=== PATIENT | female | born 2000 | race Caucasian/White ===

== ENCOUNTER → 2022-10-17 | Outpatient (CLI) | payer OTHER, SELFPAY ==
[2022-10-17 15:13] LABS: Absolute Lymphocyte Count 2.49 X10^3/uL (0.83-4.51); Absolute Neutrophil Count 1.9 X10^3/uL (2.0-7.7); Basophil# 0.02 X10^3/uL; Basophil% 0.4 % (0-1); Eosinophil# 0.07 X10^3/uL; Eosinophils% 1.4 % (0-5); Hematocrit 37.2 % (37-47); Hemoglobin 12.2 g/dL (12.0-15.0); Lymphocyte # 2.49 X10^3/ul (0.83-4.51); Lymphocyte % 50.2 % (19-41); Mean Corp Hgb Conc 32.8 g/dL (32-36); Mean Corpuscular Hgb 33.3 pg (27.0-32.0); Mean Corpuscular Volume 101.6 fL (81-99); Monocyte# 0.47 X10^3/uL; Monocyte% 9.5 % (0-10); NRBC Flagged by Analyzer 0 % (0-5); Neutrophil % 38.3 % (47-70); Platelet Count 189 K/mm3 (150-450); RBC Distribution Width CV 12.2 % (11.6-14.6); RBC Distribution Width SD 46.1 fl (35.1-43.9); Red Blood Count 3.66 M/mm3 (4.2-5.4)
[2022-10-17 15:35] LABS: Vitamin B12 275 pg/mL (211-911); Vitamin D,25 Hydroxy 32.4 ng/mL
[2022-10-17 15:39] LABS: ALB/GLOB Ratio 1.3 RATIO (0.9-2.4); AST(SGOT) 17 U/L (15-37); Alanine Aminotransfer ALT/SGPT 22 U/L (13-56); Albumin, Serum 3.9 g/dL (3.2-5.0); Alkaline Phosphatase 35 U/L (45-117); Anion Gap 5 (5-15); BUN 13 mg/dL (7-18); BUN/Creat Ratio 18.4 RATIO (10-20); Calcium,Total 8.5 mg/dL (8.5-10.1); Chloride 109 mmol/L (98-107); Creatinine, Serum 0.71 mg/dL (0.55-1.02); EST Glomerular Filtration Rate 110 mL/min (>60); Est Glom Filt Rate - Afr Amer 133 mL/min (>60); Ferritin 41 ng/mL (8-252); Globulin 3.1 g/dL (2.2-4.2); Glucose 86 mg/dL (74-106); Potassium 4.3 mmol/L (3.5-5.1); Sodium Level 141 mmol/L (136-145); T4 Free Direct 0.81 ng/dL (0.76-1.46); Thyroid Stim Hormone (TSH) 4.51 uIU/mL (0.358-3.74)
== END | disposition home or self-care (01) ==
PROVIDERS: PCP Nurse Practitioner Family; Referring Provider Nurse Practitioner Family; Visit Provider Nurse Practitioner Family
DX: R53.83 Other fatigue (principal); E03.9 Hypothyroidism, unspecified
CPT/HCPCS: 36415; 80053; 82306; 82607; 82728; 84439; 84443; 85025

== ENCOUNTER 2024-06-06 10:04 | Inpatient (IN) | payer OTHER, SELFPAY ==
[2024-06-06] VITALS (17 sets, daily range): BP systolic 105–147; BP diastolic 57–80; PULSE 60–100; RESP 16–18; TEMP 36.1–37.1; O2SAT 96–100; BMI 34.7
[2024-06-06 10:00] LABS: ROM Internal Control Test YES-OK TO RESULT pt. (Internal QC)
[2024-06-06 10:01] LABS: ROM Patient Test POSITIVE (Negative); Record Kit Lot#, ROM+ K2871
[2024-06-06] MEDS: 0.9% Saline Lock 10 ML Syringe IV (11:48)
[2024-06-06 11:58] LABS: Absolute Lymphocyte Count 2.42 X10^3/uL (0.83-4.51); Absolute Neutrophil Count 10.3 X10^3/uL (2.0-7.7); Basophil# 0.04 X10^3/uL; Basophil% 0.3 % (0-1); Eosinophil# 0.03 X10^3/uL; Eosinophils% 0.2 % (0-5); Hematocrit 40.8 % (37-47); Hemoglobin 14.2 g/dL (12.0-15.0); Lymphocyte # 2.42 X10^3/ul (0.83-4.51); Lymphocyte % 17.8 % (19-41); Mean Corp Hgb Conc 34.8 g/dL (32-36); Mean Corpuscular Hgb 33.8 pg (27.0-32.0); Mean Corpuscular Volume 97.1 fL (81-99); Mean Platelet Vol. 11.9 fl (6.2-12.0); Monocyte# 0.72 X10^3/uL; Monocyte% 5.3 % (0-10); NRBC Flagged by Analyzer 0 % (0-5); Neutrophil % 75.6 % (47-70); Platelet Count 171 K/mm3 (150-450); RBC Distribution Width CV 13.3 % (11.6-14.6); RBC Distribution Width SD 47.3 fl (35.1-43.9); White Blood Count 13.6 K/mm3 (4.4-11.0)
[2024-06-06 14:23] LABS: Syphilis Antibodies Nonreactive (Nonreactive)
--- NOTE | 2024-06-06 18:23 | PCM.HP.OB ---
HPI - General General Date of Admission: 06/06/24 HPI Narrative BRAYAN HOUGH, is a 23 F who presents at 38w1d with SROM at home. Clear fluid, no vaginal bleeding. Good movement. Irregular and infrequent contractions. Maternal Data Information LESTER Calculator Estimated Delivery Date Method Current WG Current Estimate 06/19/24 Manual 38w 1d PFSH PFSH Medical History no medical history Home Medications ?Medication ?Instructions ?Recorded ?Last Taken ?Type cholecalciferol (vitamin D3) 50 50 mcg PO DAILY vitamins 06/06/24 06/05/24 History mcg (2,000 unit) capsule (Vitamin D3) ferrous bisglycinate 13.5 mg PO DAILY anemia 06/06/24 06/05/24 History magnesium 2 tab PO DAILY vitamins 06/06/24 06/05/24 History omega-3 fatty acids 600 mg PO DAILY vitamins 06/06/24 06/05/24 History vits,calcium no.78-iron 1 tab PO DAILY 06/06/24 06/05/24 History fumarate-folic acid 29 mg-1 mg tablet (Prenatabs FA) Allergy/AdvReac Type Severity Reaction Status Date / Time No Known Allergies Allergy Verified 06/06/24 09:23 Surgical History no surgical history Social History Smoking Status: Never smoker History Elective abortions Hx Para 0 Spontaneous abortions Hx # Term Pregnancies Ectopic pregnancies Hx # Pregnancies Multiple births # of living children NST FHR Rate Baby A Baseline: 140 Variability:: Moderate Accelerations:: 15 x 15 Decelerations:: None NST Reactive:: Yes FHR Category:: Category I Uterine Activity:: Irregular ROS Constitutional Constitutional: Reports systems reviewed and no addt'l complaints, except as documented; Denies headache(s) Eyes Eyes: Denies acute decrease in peripheral vision, blurry vision or change in vision ENT HEENT: Reports systems reviewed and no addt'l complaints, except as documented Cardiovascular Cardiovascular: Denies chest pain or dizziness Respiratory/Chest Respiratory/Chest: Denies cough, dyspnea, dyspnea on exertion, shortness of breath at rest or shortness of breath with exertion Gastrointestinal Gastrointestinal: Denies abdominal pain, diarrhea, nausea or vomiting Genitourinary Genitourinary: Denies abdominal discomfort Musculoskeletal Musculoskeletal: Denies limited range of motion Integumentary Integumentary: Reports systems reviewed and no addt'l complaints, except as documented Neurologic Neurologic: Reports systems reviewed and no addt'l complaints, except as documented Psychiatric Psychiatric: Reports systems reviewed and no addt'l complaints, except as documented Endocrine Endocrinology: Reports systems reviewed and no addt'l complaints, except as documented Hematologic/Lymphatic Hematologic/Lymphatic: Reports systems reviewed and no addt'l complaints, except as documented Allergic/Immunologic Allergic/Immunologic: Reports systems reviewed and no addt'l complaints, except as documented Vital Signs Vital Signs Vital Signs: 06/06/24 09:45 06/06/24 09:45 06/06/24 09:45 Temperature Temperature Source Temporal Pulse Rate Respiratory Rate 16 Blood Pressure BP Systolic BP Diastolic Pulse Ox 98 06/06/24 09:45 06/06/24 09:48 06/06/24 09:48 Temperature 98.7 F Temperature Source Pulse Rate 69 Respiratory Rate Blood Pressure 123/74 H BP Systolic 123 BP Diastolic 74 Pulse Ox 06/06/24 11:57 06/06/24 11:57 06/06/24 11:57 Temperature Temperature Source Temporal Pulse Rate 75 Respiratory Rate Blood Pressure 133/79 H BP Systolic 133 BP Diastolic 79 Pulse Ox 06/06/24 11:57 06/06/24 11:57 06/06/24 11:57 Temperature Temperature Source Pulse Rate 74 Respiratory Rate 16 Blood Pressure BP Systolic BP Diastolic Pulse Ox 98 06/06/24 11:57 06/06/24 14:13 06/06/24 14:13 Temperature 98.6 F Temperature Source Pulse Rate 67 Respiratory Rate Blood Pressure 110/57 L BP Systolic 110 BP Diastolic 57 Pulse Ox 06/06/24 14:13 06/06/24 14:13 06/06/24 14:13 Temperature Temperature Source Temporal Pulse Rate Respiratory Rate 16 Blood Pressure BP Systolic BP Diastolic Pulse Ox 98 06/06/24 14:13 06/06/24 15:52 06/06/24 15:52 Temperature 96.9 F L Temperature Source Temporal Pulse Rate Respiratory Rate 16 Blood Pressure BP Systolic BP Diastolic Pulse Ox 06/06/24 15:52 06/06/24 15:52 06/06/24 15:53 Temperature 98.7 F Temperature Source Pulse Rate Respiratory Rate Blood Pressure 128/73 H BP Systolic 128 BP Diastolic 73 Pulse Ox 98 06/06/24 15:53 06/06/24 17:14 06/06/24 17:14 Temperature Temperature Source Temporal Pulse Rate 87 Respiratory Rate 16 Blood Pressure BP Systolic BP Diastolic Pulse Ox 06/06/24 17:14 06/06/24 17:14 06/06/24 17:16 Temperature 98.6 F Temperature Source Pulse Rate Respiratory Rate Blood Pressure 147/77 H BP Systolic 147 BP Diastolic 77 Pulse Ox 96 06/06/24 17:16 06/06/24 18:17 06/06/24 18:17 Temperature Temperature Source Pulse Rate 100 85 Respiratory Rate Blood Pressure 132/80 H BP Systolic 132 BP Diastolic 80 Pulse Ox Weight Weight: 208 lb 12.444 oz Body Mass Index (BMI) 34.7 Physical Exam Const alert and oriented x3 General Appearance: cooperative Orientation / Consciousness: awake, oriented to person, oriented to place and oriented to time Exam Limitations: no limitations HEENT normocephalic Head and Scalp: normal to inspection, normocephalic and atraumatic Face and Sinus: normal facial exam Eyes General Eye: normal appearance of both eyes Neck full ROM Chest Chest: symmetrical chest wall rise Resp normal respiratory effort and normal air movement Auscultation: clear to auscultation bilaterally Cardio regular rate, regular rhythm, S1 normal heart sound, S2 normal heart sound, no murmurs, no rub, no gallops and no clicks GI normal to inspection, nondistended, normoactive bowel sounds and non-tender appearance of the vagina normal Bladder / Kidney Exam: no CVA tenderness Manual OB Exam: estimated gestational size appropriate, presentation cephalic and other Back/Spine normal ROM Extremity normal to inspection and full ROM Skin no rashes or lesions noted Neuro oriented x3 and moves all extremities Sensorium / Orientation: awake, alert and oriented to person Motor Exam: clonus absent Deep Tendon Reflexes: Rt Patellar (L4): 2+ and Lt Patellar (L4): 2+ Labs Labs Labs: Blood Type A POSITIVE Antibody Screen NEGATIVE Hct 40.8 % (37-47) Hgb 14.2 g/dL (12.0-15.0) Syphilis Total Ab Nonreactive (Nonreactive) GBS negative HIV negative RPR negative Rubella Immune HBsAG negative HepC negative GC/CT negative 1hr GCT negative Assessment & Plan (1) 38 weeks gestation of : (2) Premature rupture of membranes: (3) History of hypothyroidism: (4) Obesity affecting : COMMENT: BMI 30 (5) LGSIL on Pap smear of cervix: PLAN: Plan 1) Admit to labor and delivery 2) Routine labs 3) Intermittent Auscultation 4) Pain management upon request, planning unmedicated 5) PROM, desired no cervical exam on admission and expectant management. Reviewed risks, benefits, and alternatives to expectant vs active management. Discussed cytotec, pitocin, and nipple stimulation. Declined cytotec and pitocin and wanted expectant management. 6) collaborative physician and notified of patient status, above assessment, and plan.
[2024-06-07] VITALS (32 sets, daily range): BP systolic 99–141; BP diastolic 53–77; PULSE 60–113; RESP 15–18; TEMP 36.1–37.1; O2SAT 92–100
[2024-06-07] MEDS: Oxytocin 15 Units/NS 250ml 15 UNITS/250 ML IV.SOLN 83 UNITS IV (07:15)
[2024-06-07] MEDS: Oxytocin 10 UNITS/ML Vial IM (07:19)
[2024-06-07] MEDS: Lidocaine 1% (20 ml mdv) 20 ML Vial INFILT (07:19)
--- NOTE | 2024-06-07 07:50 | EX.PCM.OBVAG ---
Assessment & Plan (1) Vaginal delivery: (2) First degree perineal laceration: (3) Lactating mother: Maternal Data Information LESTER Calculator Estimated Delivery Date Method Current WG Current Estimate 06/19/24 Manual 38w 2d Vaginal Delivery Maternal Presentation Maternal Presentation: Spontaneous Rupture of Membranes Vaginal Delivery Information Procedure Performed: Spontaneous Vaginal Delivery Date of Procedure: 06/07/24 Pre-Procedure Diagnosis: PROM Post-Procedure Diagnosis: , first degree perineal laceration Type of anesthesia: Local with 1% Lidocaine Estimated Blood Loss: 350ml Time of Delivery: 06:58 Findings Description of procedure: Progressed to complete with urge to push. Unmedicated. of viable female infant over first degree perineum. APGARS 9,9 respectively. Infant head delivered with body immediately forthcoming, CANx1, delivered through. Placed on maternal abdomen, strong cry. Mouth and nares suctioned for secretions. Pitocin started for active 3rd stage management. Cord doubly clamped and cut by FOB after pulsations ceased, delayed cord clamping. Placenta delivered intact via torres, 3 vessel cord intact. Perineum inspected and revealed first degree perineal laceration. Repaired with 3.0 vicryl rapide and lidocaine. Fundus firm and hemostasis achieved. EBL 350ml. Mom and baby stable, planning to breastfeed. Family bonding well. notified of delivery. Presentation: Vertex Amniotic Membrane Rupture Type: Spontaneous Amniotic Fluid Description: Clear Placental Delivery Description: Spontaneous Placenta Disposition: [facility] Specimen collected: No Cord Vessel Description: 3 Vessels Cord Entanglement: Around neck x 1, loose Nuchal Cord Compression: Without compression Infant A Gender: Female (1 minute): 9 (5 minute): 9 Delayed Cord Clamping: Yes Equipment Or Machinery Cleaner developmental mathematics professor: No Post Vaginal Deli Medications given after delivery: IV Pitocin and IM Pitocin Episiotomy Description: None Laceration: Perineal Extension/lac and 1st degree Complication Complications: No
[2024-06-07] MEDS: Methylergonovine 0.2 MG/ML Ampul IM (08:04)
[2024-06-07] MEDS: Benzocaine/Lanolin/Aloe Vera 85 GM Spray 1 SPRAY TOPICAL (10:04)
[2024-06-08] VITALS (9 sets, daily range): BP systolic 107–121; BP diastolic 56–75; PULSE 77–96; RESP 16; TEMP 36.2–36.7; O2SAT 97
[2024-06-08 06:57] LABS: Absolute Lymphocyte Count 3.18 X10^3/uL (0.83-4.51); Absolute Neutrophil Count 8.5 X10^3/uL (2.0-7.7); Basophil# 0.04 X10^3/uL; Basophil% 0.3 % (0-1); Eosinophil# 0.13 X10^3/uL; Hematocrit 29.5 % (37-47); Hemoglobin 10.3 g/dL (12.0-15.0); Lymphocyte # 3.18 X10^3/ul (0.83-4.51); Mean Corp Hgb Conc 34.9 g/dL (32-36); Mean Corpuscular Hgb 34.3 pg (27.0-32.0); Mean Corpuscular Volume 98.3 fL (81-99); Mean Platelet Vol. 11.9 fl (6.2-12.0); Monocyte% 9.8 % (0-10); NRBC Flagged by Analyzer 0 % (0-5); Neutrophil # 8.54 X10^3/uL (2.7-7.7); Neutrophil % 64.4 % (47-70); Platelet Count 151 K/mm3 (150-450); RBC Distribution Width CV 13.7 % (11.6-14.6); RBC Distribution Width SD 49.1 fl (35.1-43.9); White Blood Count 13.3 K/mm3 (4.4-11.0)
--- NOTE | 2024-06-08 08:38 | PN.OBGYN_ITS ---
Subjective Subjective Doing well. Ambulating and voiding without difficulty. Mild lochia. Breast feeding. Objective Data Objective Data Vital Signs: Vital Signs Temp Pulse Resp BP Pulse Ox O2 Del Method 97.2 F L 80 16 107/60 97 Room Air 06/08/24 04:21 06/08/24 08:24 06/08/24 08:23 06/08/24 08:24 06/08/24 08:23 06/08/24 08:23 Oxygen Delivery Method Room Air Weight: 94.7 kg Body Mass Index (BMI) 34.7 Intake & Output: Intake and Output for Last 24 Hours 06/06/24 06/07/24 06/08/24 23:59 23:59 23:59 Intake Total 250 / 250 Output Total 351 / 351 Balance -101 / -101 Lab / Micro Data 06/08/24 06:40 Labs: Laboratory Results - last 24 hr 06/08/24 06:40: WBC 13.3 H, RBC 3.00 L, Hgb 10.3 L, Hct 29.5 L, MCV 98.3, MCH 34.3 H, MCHC 34.9, RDW Std Deviation 49.1 H, RDW Coeff of Jaz 13.7, Plt Count 151, MPV 11.9, Immature Gran % (Auto) 0.500, Neut % (Auto) 64.4, Lymph % (Auto) 24.0, [place] % (Auto) 9.8, Eos % (Auto) 1.0, Baso % (Auto) 0.3, Absolute Neuts (auto) 8.5 H, Absolute Lymphs (auto) 3.18, Nucleated RBC % 0 ROS Constitutional Constitutional: Denies headache(s) Cardiovascular Cardiovascular: Denies chest pain or dyspnea Gastrointestinal Gastrointestinal: Denies nausea or vomiting Genitourinary Genitourinary: Denies dysuria Physical Exam Const alert, oriented x3 and no apparent distress General Appearance: cooperative and comfortable Eyes PERRL and EOMs intact bilaterally Resp normal respiratory effort GI soft to palpation and non-tender Uterus Palpation: uterus fundus firm ( below umbilicus) Extremity normal to inspection and full ROM Neuro oriented x3 and CN's II-XII intact bilaterally Psych mental status grossly normal Assessment & Plan (1) Lactating mother: (2) Vaginal delivery: PLAN: Plan Discharge home
--- NOTE | 2024-06-08 08:39 | PCM.DC.SUM ---
Providers Date of Admission: 06/06/24 Date of Discharge: 06/08/24 Primary Care Physician: HARI Salcido Reason For Visit: VAGINAL DELIVERY Diagnosis Discharge Diagnosis (1) Lactating mother: Status: Acute Code(s): Z39.1 - Encounter for care and examination of lactating mother (2) Vaginal delivery: Status: Acute Code(s): O80 - Encounter for full-term uncomplicated delivery Plan Discharge home Medications at Discharge Home Medications cholecalciferol (vitamin D3) 50 mcg (2,000 unit) capsule (Vitamin D3) 50 mcg PO DAILY vitamins 06/06/24 ferrous bisglycinate 13.5 mg PO DAILY anemia 06/06/24 magnesium 2 tab PO DAILY vitamins 06/06/24 omega-3 fatty acids 600 mg PO DAILY vitamins 06/06/24 vits,calcium no.78-iron fumarate-folic acid 29 mg-1 mg tablet (Prenatabs FA) 1 tab PO DAILY 06/06/24 Hospital Course Operations None Procedures None Summary of Care Provided Minutes Spent on Discharge: 20 Hospital Course: Admitted for ROM. Progressed to complete without interventions and had an uncomplicated . Breast feeding Physical Exam Const alert and no apparent distress Narrative: Fundus firm, below umbilicus. Weight / BMI Weight Weight: 94.7 kg Body Mass Index (BMI) 34.7 ABG / Lab / Microbiology Data 06/08/24 06:40 Laboratory: Laboratory Results - last 24 hr 06/08/24 06:40: WBC 13.3 H, RBC 3.00 L, Hgb 10.3 L, Hct 29.5 L, MCV 98.3, MCH 34.3 H, MCHC 34.9, RDW Std Deviation 49.1 H, RDW Coeff of Jaz 13.7, Plt Count 151, MPV 11.9, Immature Gran % (Auto) 0.500, Neut % (Auto) 64.4, Lymph % (Auto) 24.0, [place] % (Auto) 9.8, Eos % (Auto) 1.0, Baso % (Auto) 0.3, Absolute Neuts (auto) 8.5 H, Absolute Lymphs (auto) 3.18, Nucleated RBC % 0 D/C Instructions May resume sexual activity in: 6 weeks DC O2, CPAP, BIPAP Needs Home O2 Discharge instructions: No Please Follow Up With: Maria De Jesus Nation MD When: Follow up with our office in 1-2 and 6 weeks or as needed. [phone] Meaningful Use Info Meaningful Use Meaningful Use Diagnoses (Choose all that apply): None applicable Ischemic Stroke Statin Dosing Therapy Reference: STATIN DOSE THERAPY REFERENCE: * Patients > 75 years receive moderate or high dose statin therapy. * Patients 75 years or YOUNGER should receive HIGH intensity statin dose unless contraindicated. You will be required to document reason for non-treatment if statin daily dose does not meet guidelines. HIGH DOSE STATIN THERAPY DAILY Atorvastatin > than or = to 40 mg Rosuvastatin > than or = to 20 mg Amlodipine + Atorvastatin > than or = to 2.5/40 mg Ezetimibe + Simvastatin 10/80 mg Simvastatin 80mg Discharge Plan Admission Admit Date/Time: 06/06/24 10:04 Primary Reason for Your Visit: ROM Attending Provider: Shaina Vines Primary Care Provider: Cintia Metcalf Discharge Orders/Prescriptions Prescriptions: Continued Prenatabs FA 29-1 mg tablet 1 tab PO DAILY ferrous bisglycinate capsule 13.5 mg PO DAILY magnesium Tablet 2 tab PO DAILY cholecalciferol (vitamin D3) [Vitamin D3] 50 mcg (2,000 unit) capsule 50 mcg PO DAILY omega-3 fatty acids Capsule 600 mg PO DAILY Referrals / Follow Up: Cintia Metcalf, [facility] [Primary Care Provider] - Disposition Disposition (needs filled in before D/C Order can be placed): Home, Self Care
== END 2024-06-08 13:45 | disposition home or self-care (01) | DRG 807 ==
LOC: WPOUT 10:08 → WP 10:08
PROVIDERS: Admitting Provider Advanced Practice Midwife; PCP Nurse Practitioner Family; Referring Provider Advanced Practice Midwife; Visit Provider Advanced Practice Midwife
DX: O42.92 Full-term premature rupture of membranes, unspecified as to length of time between rupture and onset of labor (principal); Z37.0 Single live birth; E03.9 Hypothyroidism, unspecified; O99.214 Obesity complicating childbirth; O70.0 First degree perineal laceration during delivery; O69.81X0 Labor and delivery complicated by cord around neck, without compression, not applicable or unspecified; Z3A.38 38 weeks gestation of pregnancy; O99.284 Endocrine, nutritional and metabolic diseases complicating childbirth
CPT/HCPCS: 59025; 59050; 84112; 85025; 86780; 86850; 86900; 86901; 99221; A4216; G0378